=== PATIENT | female | born 1970 | race Caucasian/White ===

== ENCOUNTER 2022-05-18 04:39 | Outpatient (CLI) | payer MEDICAID, SELFPAY ==
[2022-05-18] MEDS: Albuterol 2.5 MG/3 ML INH SOLN VIAL UPD (17:21)
--- NOTE | 2022-05-19 07:09 | W.PFT ---
Date of service: 05/18/22 Time of Service: 15:26 Pulmonary Function Test Result Requesting Provider Evan Joya Indications: Bronchiectasis Interpretation Spirometry: There is moderate airflow limitation. There is no significant bronchodilator response. Lung Volumes: There is both hyperinflation and air trapping. Diffusion Capacity: Normal diffusion. Airway Pressure: Increased airways resistance. Impression Moderate airflow obstruction with air trapping and a normal diffusion. In the correct clinical context this may represent COPD with chronic bronchitis or uncontrolled asthma. Clinical Correlation therefore is recommended.
== END 2022-05-18 04:40 | disposition home or self-care (01) ==
LOC: RT 04:39
PROVIDERS: PCP Family Medicine; Visit Provider Family Medicine
DX: J47.9 Bronchiectasis, uncomplicated (principal); J45.40 Moderate persistent asthma, uncomplicated; R05.9 Cough, unspecified; R06.09 Other forms of dyspnea
CPT/HCPCS: 94060; 94726; 94729; J7613

== ENCOUNTER 2022-07-05 11:52 | Outpatient (CLI) | payer MEDICAID, SELFPAY ==
[2022-07-05 12:15] LABS: Abs Immature Grans 0.02 10^3/uL (0.0-0.06); Absolute Basophil Count 0.03 10^3/uL (0.0-0.2); Absolute Eosinophil Count 0.12 10^3/uL (0.0-0.7); Absolute Lymphocyte Count 2.51 10^3/uL (1.2-3.4); Absolute Monocyte Count 0.39 10^3/uL (0.1-0.8); Basophils % 0.5; Eosinophils % 1.9; HCT 40.4 % (36.0-46.0); HGB 13.5 g/dL (11.2-15.7); Immature Grans % 0.3; Lymphocytes % 39.4; MCH 28.9 pg (27.0-33.0); MCHC 33.4 % (32.0-36.0); MCV 87 fL (80-95); MPV 8.6 fL (8.0-11.0); Monocytes % 6.1; Neutrophils % 51.8; Platelet Count 398 10^3/uL (130-400); RBC 4.67 10^6/uL (3.93-5.22); RDW 12.8 % (11.7-14.6); RDW-SD 40.1 fL; WBC 6.37 10^3/uL (4.4-10.8)
[2022-07-07 11:19] LABS: IgE 79 IU/mL (<158)
== END 2022-07-05 11:53 | disposition home or self-care (01) ==
LOC: PUL 11:53
PROVIDERS: PCP Family Medicine; Visit Provider Student in an Organized Health Care Education/Training Program
DX: J45.909 Unspecified asthma, uncomplicated (principal)
CPT/HCPCS: 82785; 85025

== ENCOUNTER 2023-03-22 05:08 | Outpatient (CLI) | payer MEDICAID, SELFPAY ==
--- NOTE | 2023-04-01 08:23 | W.NOCTURNAL ---
Date of service: 03/24/23 Time of Service: 02:01 Nocturnal Oximetry Note: Overnight Oximetry Amount of time analyzed: 5 hours, 7 minutes on 2LPM through [facility] Number of minutes under 88%: 4.1 DAYANNA: 6.4 Appearance of oxygen saturation pattern:some increases and decreases consistent with NIRAV. Recommendation: Continue with 2LPM O2 through [facility] Yesenia Arce MD Pulmonary & Critical Care Medicine
== END 2023-03-22 05:09 | disposition home or self-care (01) ==
LOC: RT 05:09
PROVIDERS: PCP Family Medicine; Visit Provider Student in an Organized Health Care Education/Training Program
DX: G47.34 Idiopathic sleep related nonobstructive alveolar hypoventilation (principal)
CPT/HCPCS: 94762

== ENCOUNTER 2023-10-28 01:39 | Outpatient (CLI) | payer MEDICAID, SELFPAY ==
--- NOTE | 2023-11-03 13:12 | W.NOCTURNAL ---
Date of service: 10/29/23 Time of Service: 15:00 Nocturnal Oximetry Note: KIRT on RA showing 28 minutes below 88%, lowest O2Sat of 82%. Impression: Desaturations requiring supplemental nocturnal O2.
== END 2023-10-28 01:40 | disposition home or self-care (01) ==
LOC: RT 01:39
PROVIDERS: PCP Family Medicine; Visit Provider Physician Assistant Surgical
DX: R09.02 Hypoxemia (principal)
CPT/HCPCS: 00123; 94762

== ENCOUNTER 2024-01-02 18:50 | Outpatient (REF) | payer MEDICAID, SELFPAY ==
[2024-01-04 09:05] LABS: IgA 140 mg/dL (85-499); IgE 113 IU/mL (<158); IgG 938 mg/dL (610-1616); IgM 92 mg/dL (35-242)
[2024-01-04 09:56] LABS: Cyclic Citrullinated Peptide <2.5 U/mL (<5.0)
[2024-01-04 14:24] LABS: ANA Interpretation Negative (Negative)
[2024-01-06 12:55] LABS: Immunoglobulin D (IgD) 3 mg/dL (<=10)
== END 2024-01-02 18:51 | disposition home or self-care (01) ==
LOC: LBN 18:50
PROVIDERS: Student in an Organized Health Care Education/Training Program; PCP Family Medicine; Visit Provider Physician Assistant Surgical
DX: B99.9 Unspecified infectious disease (principal); M25.50 Pain in unspecified joint; J45.909 Unspecified asthma, uncomplicated
CPT/HCPCS: 82784; 86200; 82785; 82787; 86038

== ENCOUNTER 2024-08-13 18:57 | Outpatient (REF) | payer MEDICAID, SELFPAY ==
[2024-08-13 23:23] LABS: IgE 129 IU/mL (<158)
== END 2024-08-13 18:58 | disposition home or self-care (01) ==
LOC: LBN 18:57
PROVIDERS: PCP Family Medicine; Visit Provider Physician Assistant Surgical
DX: J45.909 Unspecified asthma, uncomplicated (principal)
CPT/HCPCS: 82785

== ENCOUNTER 2024-10-05 00:21 | Outpatient (CLI) | payer MEDICAID, SELFPAY ==
--- NOTE | 2024-10-05 | DI.US_ITS ---
Exam(s) US THYROID EXAM: US THYROID CLINICAL HISTORY: FluctuatingTSH,chronic cough,hx of Elver's, hypothyroidism R05.3, E03.9. TECHNIQUE: Ultrasound thyroid performed using standard protocol. COMPARISON: No exams were available for comparison FINDINGS: ISTHMUS: 8 mm RIGHT LOBE: Size: 4.4 x 1.9 x 1.4 cm Echogenicity: There is diffusely heterogeneous echogenicity of the right lobe. Vascularity: There is diffuse increased blood flow noted. Nodules: None. LEFT LOBE: Size: 3.5 x 1.5 x 1.4 cm Echogenicity: There is a diffusely heterogeneous left lobe. Vascularity: There is diffuse increased blood flow noted. Nodules: None. OTHER FINDINGS: Sonographically normal appearing lymph nodes are seen in the neck. IMPRESSION: Heterogeneous hyperemic thyroid gland without discrete nodule. This can be seen with diffuse thyroid disease/thyroiditis. Please correlate with the patient's laboratory values and clinical history. DATA REPOSITORY:
== END 2024-10-05 00:41 ==
LOC: DI 00:21
PROVIDERS: PCP Family Medicine; Visit Provider Registered Nurse Maternal Newborn
DX: R05.3 Chronic cough (principal); E03.9 Hypothyroidism, unspecified; E07.89 Other specified disorders of thyroid
CPT/HCPCS: 76536